=== PATIENT | female | born 1955 | race Caucasian/White ===

== ENCOUNTER 2017-08-07 11:03 | Day surgery (SDC) | payer MEDICARE ==
[~2017-08-07 11:03] MED LIST: Buffered Lidocaine 0.9% SYRIN* 5 ML/SYR SYRINGE INTRADERM ONE; Famotidine IV* 10 MG/ML 2 ML (20 mg) IV ONE; Famotidine IV* 10 MG/ML 2 ML (20 mg) ONE; Metoclopramide TAB* 10 MG ONE; Metoclopramide TAB* 10 MG PO ONE
[2017-08-07] MEDS ORDERED: fentaNYL* 50 MCG/ML 2 ML VIAL (100 MCG VIAL) ONE (11:48)
[2017-08-07] MEDS ORDERED: Lidocaine 2% PF * 5 ML VIAL ONE (11:48)
[2017-08-07] MEDS ORDERED: Propofol* 10 MG/ML 20 ML BTL IV PUSH ONE ×2 (11:48→13:11)
[2017-08-07] MEDS ORDERED: Ondansetron INJ* 2 MG/ML VIAL ONE (11:48)
[2017-08-07] MEDS ORDERED: Ketorolac INJ* 30 MG/ML 1 ML VIAL ONE (11:48)
[2017-08-07] MEDS ORDERED: Dexamethasone IV* 4 MG/ML 1 ML (4 MG) ONE (11:48)
[2017-08-07] MEDS ORDERED: KETAMINE HCL* 50 MG/ML 10 ML VIAL ONE (11:48)
[2017-08-07] MEDS ORDERED: Midazolam* 1 MG/ML 5 ML VIAL (5 MG) ONE (11:48)
[2017-08-07] MEDS ORDERED: Ondansetron INJ* 2 MG/ML VIAL IV PRN (12:05)
[2017-08-07] MEDS ORDERED: fentaNYL* 50 MCG/ML 2 ML VIAL (100 MCG VIAL) IV PRN (12:05)
[2017-08-07] MEDS ORDERED: Midazolam* 1 MG/ML 2 ML VIAL (2 MG) ONE (12:44)
[2017-08-07 14:17] VITALS: BP 152/72
--- NOTE | 2017-08-08 07:39 | PRO ---
CC: Dr. Cox; Dr. Sarah Massey GASTROENTEROLOGY PROCEDURE REPORT: DATE OF PROCEDURE: 08/07/17 PROCEDURE: Colonoscopy to terminal ileum. SURGEON: Sarah Massey D.O. ANESTHESIA: MAC. INDICATION: Personal history of tubular adenomatous polyps. HISTORY OF PRESENT ILLNESS: Evelina is a very pleasant 61-year-old female with a history of lymphoma and is here for a surveillance colonoscopy. The patient's last colonoscopy was performed in 2011 and revealed multiple tubular adenomas. She has no family history of colon cancer. FINDINGS: 1. Good colonoscopy preparation. 2. Normal appearing terminal ileum. 3. A 4 mm sessile polyp seen in the descending colon with polypectomy. 4. Two 4 mm sigmoid polyps with polypectomies. 5. Pavon diverticulosis consisting of medium and large mouthed diverticula throughout the colon. There were greater diverticula in the descending and sigmoid colon versus ascending colon. 6. Small nonbleeding internal hemorrhoids seen on retroflexion. PLAN: 1. Will follow-up biopsy results. 2. Patient will likely need a repeat Colonoscopy in 5 years due to polyps. 3. Please note, patient has emphysema and we have had significant difficulty with moderate sedation in the past. I recommend that any further endoscopic procedures be done under MAC anesthesia for airway safety. DESCRIPTION OF PROCEDURE: Colonoscopy was explained in detail to the patient. The risks, benefits, complications, alternatives, and possibilities of missed lesions were explained and understood. Complications included, but were not limited to, reaction to anesthesia, aspiration, increased risk of bleeding, infection, and perforation. All questions were answered. The patient demonstrated understanding of the conversation, informed consent was obtained. Next, the patient was brought to the endoscopy suite, placed in the left lateral recumbent position where blood pressure, cardiac and oxygen monitors were applied. The patient was found to be a fit candidate for MAC anesthesia. After adequate IV sedation was obtained, a digital rectal exam was performed, which revealed normal sphincter tone. No palpable masses were appreciated. Next, a standard Adult Olympus Colonoscope was inserted through the rectum, maneuvered all the way to the cecal base where the ileocecal valve and appendiceal orifice were identified and photographed. Next, the terminal ileum was intubated and was normal appearing. Subsequently, the colonoscope was withdrawn in the fashion that allowed adequate visualization of the bowel. The patient had normal mucosal and vascular pattern upon entry. Overall, the patient's colonoscopy prep was good. There were medium and large mouthed diverticula seen throughout the entire colon, mainly in the ascending, descending and sigmoid colon. There were more diverticula noted in the descending and sigmoid colon. Entry into the descending colon revealed a 4 mm sessile polyp that was removed via cold forceps. Further withdrawal into the sigmoid colon revealed two 4 mm sessile polyps. These were also removed via cold forceps. Reflexion was performed and revealed a small nonbleeding internal hemorrhoid. Air was then removed from the patient. Colonoscope was removed from the patient. The patient tolerated the procedure well. There were no immediate complications. After a period of observation, the patient was discharged home with a shuttle van driver in stable condition. Thank you, Dr. Cox, for allowing us to participate in the care of your patient. If you should have any further questions or concerns, please do not hesitate to contact us. [id number]/[id number] #: [id number]
--- NOTE | 2017-08-08 09:42 | PRO ---
CC: Dr. Archana Cox * GASTROENTEROLOGY OPERATIVE REPORT: DATE OF PROCEDURE: 08/07/17 SURGEON: Sarah Massey DO ANESTHESIA: MAC. OPERATIVE PROCEDURE: Esophagogastroduodenoscopy to fourth portion of the duodenum. INDICATION: Abnormal CT imaging with thickening of the duodenum and epigastric pain. FINDINGS: 1. Mild pangastritis with biopsies from the antrum and body to rule out H. pylori. 2. A 3-cm hiatal hernia from 35 cm to 38 cm from the incisors. 3. Irregular appearing gastroesophageal junction at 35 cm from the incisors with biopsies. 4. Normal and mid proximal esophagus. 5. Duodenitis of the bulb with biopsies. 6. Irregular appearing thickened mucosal fold in the bulb of the duodenum with multiple biopsies. PLAN: 1. We will follow up with biopsy results. 2. Avoid NSAIDs if possible. 3. Recommend starting PPI therapy daily. 4. The patient should follow up in our office in 2 weeks to review biopsy results and determine further plan of care. 5. Due to patient's history of emphysema she has been unable to tolerate moderate anesthesia in the past. I recommend that any further endoscopic procedures be performed under MAC anesthesia. DESCRIPTION OF PROCEDURE: Esophagogastroduodenoscopy was explained in detail to the patient. The risks, benefits, complications, alternatives, and possibilities of missed lesions were explained and understood. Complications included but were not limited to reaction to anesthesia, aspiration, increased risk of bleeding, perforation. All questions were answered. The patient demonstrated understanding of the conversation. Informed consent was obtained. Next, the patient was brought to the endoscopy suite, placed in the left lateral recumbent position, where blood pressure, cardiac, and oxygen monitors were applied. The patient was found to be a fit candidate for MAC anesthesia. After adequate IV sedation was obtained, a bite- block was placed. Next, a standard adult Olympus endoscope was inserted per os under direct visualization to the fourth portion of duodenum. The third and fourth portion of the duodenum were normal appearing. The bulb, first, and second portion revealed mild erythema consistent with duodenitis. Upon entry into the bulb of the duodenum, there was a duodenal fold that was irregular-appearing and thickened. Multiple cold forceps biopsies were obtained of this area. Further withdrawal of the endoscope into the gastric lumen revealed moderate inflammation consistent with pangastritis of the entire stomach. Cold forceps biopsies were obtained from the antrum and body to rule out H. pylori. On retroflexion, the patient had a very loose sling. Further withdrawal of the endoscope into the distal esophagus revealed an irregular appearing gastroesophageal junction. Cold forceps biopsies were obtained of this area as well. There was a 3-cm hiatal hernia that was noted from 38 cm to 35 cm from the incisors. The rest of the tubular esophagus was normal appearing. Air was then removed from the patient. Endoscope was removed from the patient. The patient tolerated the procedure well. There were no immediate complications. After a period of observation, the patient was discharged home with a paratransit driver in stable condition. Thank you, Dr. Cox, for allowing us to participate in the care of your patient. We will follow your patient closely and review by path results. Further recommendations will be provided upon review of all of these results. If you should have any further questions or concerns, please do not hesitate to contact us. [id number]/CPS #: [id number] DANG
== END 2017-08-07 15:30 | disposition home or self-care (01) ==
LOC: OR 11:03
PROVIDERS: ATTEND Internal Medicine Gastroenterology
DX: R93.5 Abnormal findings on diagnostic imaging of other abdominal regions, including retroperitoneum (principal); Z86.010 Personal history of colon polyps; R10.13 Epigastric pain; Z12.11 Encounter for screening for malignant neoplasm of colon; K57.30 Diverticulosis of large intestine without perforation or abscess without bleeding; K63.5 Polyp of colon; K62.1 Rectal polyp; K64.8 Other hemorrhoids; K29.60 Other gastritis without bleeding; K44.9 Diaphragmatic hernia without obstruction or gangrene; K29.80 Duodenitis without bleeding; J44.9 Chronic obstructive pulmonary disease, unspecified; F17.210 Nicotine dependence, cigarettes, uncomplicated; G47.30 Sleep apnea, unspecified; C85.90 Non-Hodgkin lymphoma, unspecified, unspecified site
CPT/HCPCS: 88305; A9270-GY; J1100; J1885; J2250; J2405; J2704; J3010

== ENCOUNTER 2018-08-13 13:14 | Emergency (ER) | payer MEDICARE ==
[2018-08-13 14:31] VITALS: BP 144/74
--- NOTE | 2018-08-13 14:35 | UC ---
General HPI - HPI Summary HPI Summary: Patient states that 3 weeks ago she developed some nasal congestion a week into that illness she noted bilateral ear pressure and now has cough with clear sputum and yellow nasal discharge those 2 things have developed over the past 2 days. Also, last evening she had a fever of 101.2 which she has been treating with ibuprofen. She admits to having some shortness of breath and wheezing as well. Her past medical history does include COPD. She denies any associated chest pain. She did have some diarrhea couple of days ago but again that is since resolved. - History of Current Complaint Stated Complaint: SORE THROAT,COUGH Time Seen by Provider: 08/13/18 14:19 Hx Obtained From: Patient Onset/Duration: Gradual Onset Associated Signs & Symptoms: Positive: Cough, Diarrhea, Fever, SOB, Wheezing. Negative: Chest Pain, Nausea, Vomiting - Allergy/Home Medications Allergies/Adverse Reactions: Allergies Allergy/AdvReac Type Severity Reaction Status Date / Time amoxicillin Allergy Nausea And Verified 05/12/18 10:18 Vomiting bacitracin Allergy Rash And Verified 05/12/18 10:19 Itching clavulanic acid Allergy Nausea And Verified 05/12/18 10:20 Vomiting neomycin Allergy Rash And Verified 05/12/18 10:20 Itching polymyxin B Allergy Rash And Verified 05/12/18 10:20 Itching pramoxine Allergy Rash And Verified 05/12/18 10:21 Itching rofecoxib [From Vioxx] Allergy Hives Verified 05/12/18 10:21 Tetanus Vaccines and Toxoid Allergy GI Upset Verified 05/12/18 10:18 Home Medications: Home Medications Glycopyrrolate/Formoterol Fum [Bevespi Aerosphere Inhaler] 10.7 gm IH Q6HR PRN 08/13/18 [History Confirmed 08/13/18] PMH/Surg Hx/FS Hx/Imm Hx - Additional Past Medical History Additional PMH: Chronic hip and back pain Respiratory History: COPD - Surgical History Surgical History: Yes Surgery Procedure, Year, and Place: lymph nodes left side neck 03/2016, open heart surg 1975, cholecystectomy 1972, tubal ligation, hysterectomy 2004, [facility]PP [id number] - Family History Known Family History: Positive: Hypertension - Social History Occupation: Disabled Alcohol Use: Rare Substance Use Type: None Smoking Status (MU): Heavy Every Day Tobacco Smoker Amount Used/How Often: smoking for 40 years - Immunization History Vaccination Up to Date: Yes Review of Systems Constitutional: Fever Skin: Negative Eyes: Negative ENT: Ear Ache, Sinus Congestion, Sinus Pain/Tenderness Respiratory: Shortness Of Breath, Cough Cardiovascular: Negative Gastrointestinal: Negative Genitourinary: Negative Motor: Negative Neurovascular: Negative Musculoskeletal: Other: - chronic hip/back pain Neurological: Negative Psychological: Negative Is Patient Immunocompromised?: No All Other Systems Reviewed And Are Negative: Yes Physical Exam Triage Information Reviewed: Yes Appearance: Well-Appearing Vital Signs Reviewed: Yes Eyes: Positive: Conjunctiva Clear ENT: Positive: Pharynx normal, Nasal congestion, TMs normal, Sinus tenderness Neck: Positive: Supple, Nontender, No Lymphadenopathy Respiratory: Positive: Lungs clear, No respiratory distress, Decreased breath sounds Cardiovascular: Positive: RRR, No Murmur Abdomen Description: Positive: Nontender, No Organomegaly, Soft Bowel Sounds: Positive: Present Musculoskeletal: Positive: ROM Intact, No Edema Neurological: Positive: Alert Psychological: Positive: Age Appropriate Behavior Skin Exam: Normal Diagnostics - Radiology No standard instances Radiology Interpretation Completed By: Radiologist - CXR=HYPERINFLATION, CONSISTENT WITH COPD. NO ACTIVE CARDIOPULMONARY DISEASE. Re-Evaluation - Re-Evaluation First Eval Re-Evaluation Time: 15:24 Change: Improved - much better aeration post neb, pt feeling her breathing is much better. no itching from the po prednisone here. Course/Dx - Course Course Of Treatment: non toxic, not hypoxic. no infiltrate on cxr. now has a fever and worsening illness thus will cover for bacterial infection with levaquin which will cover her lungs and sinuses. pt allergic to pcn's and doxycycline has a drug interaction that is significant.pt has taken levaquin in past and states that works well for her. we discussed the risk of tendinopathy, pt willing to take that risk. pt noted a hx of itching after a dose of prednisone in past but was never told not to take it again. she agrees to trial a dose of prednisone here. no concern for acs. - Differential Dx - Multi-Symptom Provider Diagnoses: sinusitis. exacerbation COPD Discharge - Sign-Out/Discharge Documenting (check all that apply): Patient Departure All imaging exams completed and their final reports reviewed: Yes - Discharge Plan Condition: Stable Disposition: HOME Prescriptions: Albuterol HFA INHALER* [Ventolin HFA Inhaler*] 2 puff INH Q6H #1 mdi Levofloxacin TAB* [Levaquin TAB*] 500 mg PO DAILY 7 Days #7 tab predniSONE TAB* [Deltasone 20 MG TAB*] 40 mg PO DAILY 3 Days #6 tab Patient Education Materials: Sinusitis (ED), COPD (Chronic Obstructive Pulmonary Disease) (ED) Referrals: Archana Cox MD [Primary Care Provider] - 5 Days - Billing Disposition and Condition Condition: STABLE Disposition: Home
[2018-08-13] MEDS ORDERED: Albuterol/Ipratropium NEB.SOL* Albuterol 2.5 MG/Ipratropium 0.5 MG 3 ML INH ONE (14:43)
[2018-08-13] MEDS ORDERED: predniSONE TAB* 20 MG PO ONE (14:44)
--- NOTE | 2018-08-13 14:58 | RAD ---
HISTORY: COUGH, FEVER COMPARISONS: December 17, 2016 VIEWS: 4: Frontal dual-energy and lateral views of the chest. FINDINGS: CARDIOMEDIASTINAL SILHOUETTE: The cardiomediastinal silhouette is normal. FILEMON: The filemon are normal. PLEURA: The costophrenic angles are sharp. No pleural abnormalities are noted. LUNG PARENCHYMA: There is hyperinflation with flattening of the diaphragm and expansion of the AP diameter of the chest. ABDOMEN: The upper abdomen is clear. There is no subphrenic gas. BONES AND SOFT TISSUES: The patient is status post median sternotomy. OTHER: None. IMPRESSION: HYPERINFLATION, CONSISTENT WITH COPD. NO ACTIVE CARDIOPULMONARY DISEASE.
== END 2018-08-13 15:35 | disposition home or self-care (01) ==
LOC: UCCORT 13:14
DX: J32.9 Chronic sinusitis, unspecified (principal); J44.1 Chronic obstructive pulmonary disease with (acute) exacerbation; M25.559 Pain in unspecified hip; M54.9 Dorsalgia, unspecified; F17.210 Nicotine dependence, cigarettes, uncomplicated; Z88.8 Allergy status to other drugs, medicaments and biological substances; Z88.1 Allergy status to other antibiotic agents
CPT/HCPCS: 71046; 99212; A9270-GY; G0463; J7512

== ENCOUNTER 2018-11-09 16:52 | Emergency (ER) | payer MEDICARE, OTHER ==
[2018-11-09 17:36] VITALS: BP 157/79
[2018-11-09] MEDS ORDERED: Ketorolac INJ* 60 MG/2 ML VIAL IM ONE (17:45)
--- NOTE | 2018-11-09 17:51 | UC ---
Shoulder Pain HPI - HPI Summary HPI Summary: Patient slept on her couch and woke up with a buring sensation down her shoulder to her elbow, feels like she pinched a nerve, chiropractor was not open today - History of Current Complaint Chief Complaint: UCUpperExtremity Stated Complaint: NECK AND SHOULDER PAIN Time Seen by Provider: 11/09/18 17:29 Hx Obtained From: Patient ?: No Onset/Duration: Sudden Onset, Lasting Hours Timing: Constant Severity Initially: Severe Severity Currently: Severe Location Of Pain: Is Discrete @ - right shoulder and arm Pain Intensity: 7 Character: Spasmodic, Burning Aggravating Factor(s): Movement - Allergies/Home Medications Allergies/Adverse Reactions: Allergies Allergy/AdvReac Type Severity Reaction Status Date / Time amoxicillin Allergy Nausea And Verified 11/09/18 17:37 Vomiting bacitracin Allergy Rash And Verified 11/09/18 17:37 Itching clavulanic acid Allergy Nausea And Verified 11/09/18 17:37 Vomiting neomycin Allergy Rash And Verified 11/09/18 17:37 Itching polymyxin B Allergy Rash And Verified 11/09/18 17:37 Itching pramoxine Allergy Rash And Verified 11/09/18 17:37 Itching rofecoxib [From Vioxx] Allergy Hives Verified 11/09/18 17:37 Tetanus Vaccines and Toxoid Allergy GI Upset Verified 11/09/18 17:37 PMH/Surg Hx/FS Hx/Imm Hx Previously Healthy: Yes - Surgical History Surgical History: Yes Surgery Procedure, Year, and Place: lymph nodes left side neck 03/2016, open heart surg 1975, cholecystectomy 1972, tubal ligation, hysterectomy 2004, [facility] [id number] - Family History Known Family History: Positive: Hypertension - Social History Alcohol Use: Rare Substance Use Type: None Smoking Status (MU): Heavy Every Day Tobacco Smoker Type: Cigarettes Amount Used/How Often: smoking for 40 years - Immunization History Vaccination Up to Date: Yes Review of Systems All Other Systems Reviewed And Are Negative: Yes Constitutional: Positive: Negative Skin: Positive: Negative Eyes: Positive: Negative ENT: Positive: Negative Respiratory: Positive: Negative Cardiovascular: Positive: Negative Gastrointestinal: Positive: Negative Genitourinary: Positive: Negative Motor: Positive: Negative Neurovascular: Positive: Negative Musculoskeletal: Positive: Arthralgia, Decreased ROM, Myalgia Neurological: Positive: Negative Psychological: Positive: Negative Is Patient Immunocompromised?: No Physical Exam Triage Information Reviewed: Yes Appearance: Well-Appearing, Well-Nourished, Pain Distress Vital Signs: Initial Vital Signs Temp 97.4 F 11/09/18 17:33 Pulse 70 11/09/18 17:33 Resp 18 11/09/18 17:33 BP 157/79 11/09/18 17:33 Pulse Ox 100 11/09/18 17:33 Vital Signs Reviewed: Yes Eye Exam: Normal ENT Exam: Normal Dental Exam: Normal Neck exam: Normal Neck: Positive: Supple, Nontender, No Lymphadenopathy Respiratory Exam: Normal Respiratory: Positive: Chest non-tender, Lungs clear, Normal breath sounds Cardiovascular Exam: Normal Cardiovascular: Positive: Pulses Normal Abdominal Exam: Normal Abdomen Description: Positive: Nontender, No Organomegaly, Soft Bowel Sounds: Positive: Present Musculoskeletal Exam: Normal Musculoskeletal: Positive: Strength Intact, ROM Intact - but pain ful to calvo her arm at her side, increaes the burning, No Edema Neurological Exam: Normal Neurological: Positive: Alert Psychological Exam: Normal Skin Exam: Normal Shoulder Course/Dx - Course Course Of Treatment: hx btained, exam performed ,meds reviewed, tordaol given and muscle relaxor prescribed - Differential Dx/Diagnosis Differential Diagnosis/HQI/PQRI: Sprain, Strain Provider Diagnosis: Cervical radiculopathy, Neck pain Discharge - Sign-Out/Discharge Documenting (check all that apply): Patient Departure All imaging exams completed and their final reports reviewed: No Studies - Discharge Plan Condition: Stable Disposition: HOME Prescriptions: Cyclobenzaprine TAB* [Flexeril 10 MG TAB*] 10 mg PO TID PRN #15 tab PRN Reason: Spasms Patient Education Materials: Cervical Radiculopathy (ED) Referrals: Archana Cox MD [Primary Care Provider] - Additional Instructions: 1. you were given a dose of toradol, do not take and aleve or ibuprofen until after 2 am. you may use tylenol or the flexeril as needed. 2. heat stretch and lay flat with arm supported for sleep 3. Follow up with your chiropractor at your earliest convenience - Billing Disposition and Condition Condition: STABLE Disposition: Home - Attestation Statements Provider Attestation: I was available for consult. This patient was seen by the [facility]. The patient was not presented to , seen by or examined by vt Crista Benoit MD
[2018-11-09] MEDS ORDERED: Cyclobenzaprine TAB* 10 MG PO ONE (17:52)
== END 2018-11-09 18:04 | disposition home or self-care (01) ==
LOC: UCCORT 16:52
DX: M54.12 Radiculopathy, cervical region (principal); Z88.0 Allergy status to penicillin; Z88.1 Allergy status to other antibiotic agents; Z88.8 Allergy status to other drugs, medicaments and biological substances; Z88.7 Allergy status to serum and vaccine; F17.210 Nicotine dependence, cigarettes, uncomplicated
CPT/HCPCS: 96372; 99212; A9270-GY; G0463; J1885

== ENCOUNTER 2019-11-03 12:49 | Emergency (ER) | payer MEDICARE, OTHER ==
[2019-11-03 13:44] VITALS: BP 128/72
[2019-11-03 14:10] LABS: Influenza A Molecular NEGATIVE (Negative); Influenza B Molecular NEGATIVE (Negative)
--- NOTE | 2019-11-03 15:06 | UC ---
FLU HPI - HPI Summary HPI Summary: Pt presents with c/o body aches, chills, subjective fever, X 2 days, and abdominal pain and multiple episodes of diarrhea that began today. Pt states she has not gotten her flu vaccine. Pt is concerned that she may have the flu. - History of Current Complaint Chief Complaint: UCGeneralIllness Stated Complaint: CONGESTION DIARRHEA CHILLS BODYACHES Time Seen by Provider: 11/03/19 13:47 Hx Obtained From: Patient ?: No Onset/Duration: Sudden Onset, Lasting Days, Still Present Severity Currently: Moderate Severity Initially: Moderate Pain Intensity: 4 Pain Scale Used: 0-10 Numeric Associated Signs & Symptoms: Positive: Fever, Myalgia, Diarrhea - Risk Factors Influenza Risk Factors: Negative - Allergy/Home Medications Allergies/Adverse Reactions: Allergies Allergy/AdvReac Type Severity Reaction Status Date / Time amoxicillin Allergy Nausea And Verified 11/03/19 13:32 Vomiting bacitracin Allergy Rash And Verified 11/03/19 13:32 Itching clavulanic acid Allergy Nausea And Verified 11/03/19 13:32 Vomiting neomycin Allergy Rash And Verified 11/03/19 13:32 Itching polymyxin B Allergy Rash And Verified 11/03/19 13:32 Itching pramoxine Allergy Rash And Verified 11/03/19 13:32 Itching rofecoxib [From Vioxx] Allergy Hives Verified 11/03/19 13:32 Tetanus Vaccines and Toxoid Allergy GI Upset Verified 11/03/19 13:32 PMH/Surg Hx/FS Hx/Imm Hx Previously Healthy: Yes - Surgical History Surgical History: Yes Surgery Procedure, Year, and Place: lymph nodes left side neck 03/2016, open heart surg 1975, cholecystectomy 1972, tubal ligation, hysterectomy 2004, UPP- sleep apnea surgery-T+A [id number] - Family History Known Family History: Positive: Hypertension - Social History Occupation: Disabled Lives: With Family Alcohol Use: Rare Substance Use Type: None Smoking Status (MU): Heavy Every Day Tobacco Smoker Type: Cigarettes Amount Used/How Often: 1/2 ppd Length of Time of Smoking/Using Tobacco: 40 years Have You Smoked in the Last Year: Yes Household Exposure Type: Cigarettes - Immunization History Vaccination Up to Date: Yes Review of Systems All Other Systems Reviewed And Are Negative: Yes Constitutional: Positive: Fever, Chills, Fatigue Skin: Positive: Negative Eyes: Positive: Negative ENT: Positive: Sinus Congestion Respiratory: Positive: Negative Cardiovascular: Positive: Negative Gastrointestinal: Positive: Diarrhea Genitourinary: Positive: Negative Motor: Positive: Negative Neurovascular: Positive: Negative Musculoskeletal: Positive: Myalgia Neurological: Positive: Negative Psychological: Positive: Negative Is Patient Immunocompromised?: No Physical Exam Triage Information Reviewed: Yes Appearance: Ill-Appearing Vital Signs: Initial Vital Signs Temp 97.4 F 11/03/19 13:35 Pulse 76 11/03/19 13:35 Resp 18 11/03/19 13:35 BP 128/72 11/03/19 13:35 Pulse Ox 97 11/03/19 13:35 Vital Signs Reviewed: Yes Eye Exam: Normal ENT: Positive: Nasal congestion Dental Exam: Normal Neck exam: Normal Respiratory: Positive: Normal breath sounds, No respiratory distress Cardiovascular Exam: Normal Musculoskeletal Exam: Normal Neurological Exam: Normal Psychological Exam: Normal Skin Exam: Normal Flu Course/Dx - Course Course Of Treatment: Pt states she has not gotten her flu vaccine. - Differential Dx/Diagnosis Differential Diagnosis/HQI/PQRI: Influenza, Upper Respiratory Infection Provider Diagnosis: Viral syndrome Discharge ED - Sign-Out/Discharge Documenting (check all that apply): Patient Departure All imaging exams completed and their final reports reviewed: No Studies - Discharge Plan Condition: Stable Disposition: HOME Patient Education Materials: Loperamide (By mouth), Decongestant/Expectorant ( By mouth), Viral Syndrome (ED) Referrals: [facility] [Outside] - If Needed Archana Cox MD [Primary Care Provider] - - Billing Disposition and Condition Condition: STABLE Disposition: Home
== END 2019-11-03 14:27 | disposition home or self-care (01) ==
LOC: UCCORT 12:49
DX: M79.10 Myalgia, unspecified site (principal); R68.83 Chills (without fever); R10.9 Unspecified abdominal pain; R19.7 Diarrhea, unspecified; F17.210 Nicotine dependence, cigarettes, uncomplicated; Z88.8 Allergy status to other drugs, medicaments and biological substances; R53.83 Other fatigue; R09.89 Other specified symptoms and signs involving the circulatory and respiratory systems; Z88.1 Allergy status to other antibiotic agents; Z88.0 Allergy status to penicillin; Z88.7 Allergy status to serum and vaccine
CPT/HCPCS: 99211; G0463

== ENCOUNTER 2023-06-17 13:59 | Observation (INO) ==
[2023-06-17] MEDS ORDERED: cefTRIAXone 2 gm/50 mL D5W 2 GM/50 ML BAG IV ONE (14:36)
[2023-06-17] MEDS ORDERED: Lidocaine 2% PF 5 ML VIAL ONE (15:05)
[2023-06-17] MEDS ORDERED: Propofol 10 MG/ML 20 ML BTL ONE (15:05)
[2023-06-17] MEDS ORDERED: fentaNYL 100 mcg/2 ml 50 MCG/ML VIAL ONE ×3 (15:06→18:34)
[2023-06-17] MEDS ORDERED: Iohexol 180 (CONTRAST) 10 ML SDV IV ONE (15:48)
[2023-06-17] MEDS ORDERED: Midazolam 2 mg/2 ml VIAL 1 mg/ml 2 ml VIAL (2 mg) ONE (16:26)
[2023-06-17] MEDS ORDERED: Ondansetron 4 mg VIAL 2 MG/ML 2 ml VIAL ONE (17:13)
[2023-06-17] MEDS ORDERED: Furosemide 20 mg/2 ml IV VIAL ONE ×2 (18:07→18:44)
[2023-06-17] MEDS ORDERED: Naloxone 0.4 mg VIAL 0.4 mg/ml 1 ml VIAL IV PRN ×2 (18:21→19:19)
[2023-06-17] MEDS: fentaNYL 100 mcg/2 ml 50 MCG/ML VIAL IV PRN ×4 (18:36→18:59)
[2023-06-17] MEDS ORDERED: Acetaminophen IV 1 GM/100ML 1,000 MG/100 ML BAG IV ONE ×2 (19:16→19:21)
[2023-06-17] MEDS ORDERED: HYDROmorphone 1 MG/1 ML SYRINGE ONE (19:21)
[2023-06-17] MEDS: HYDROmorphone 1 MG/1 ML SYRINGE IV PRN ×5 (19:23→20:59)
[2023-06-17] MEDS ORDERED: Albuterol HFA INHALER 8 gm MDI INH PRN (20:49)
[2023-06-17 20:56] LABS: Rapid COVID-19 Molecular Undetected (Undetected)
[2023-06-17] MEDS ORDERED: HYDROmorphone 1 MG/1 ML SYRINGE IV SLOW PU PRN (21:04)
[2023-06-17] MEDS ORDERED: HYDROcodone/ACETAMIN 5/325 mg TAB PO PRN (21:05)
[2023-06-17] MEDS ORDERED: Dextrose 50% Syringe 50 ml 25 GM/50 ML SYRINGE IV PUSH PRN (21:06)
[2023-06-18] MEDS ORDERED: oxyCODONE/Acetamin 5/325 mg TAB PO PRN (00:19)
[2023-06-18] MEDS ORDERED: LACTATED RINGERS 1000 ML BAG IV SCH (01:00)
[2023-06-18] MEDS ORDERED: Furosemide 20 mg/2 ml IV VIAL IV SLOW PU ONE (01:00)
[2023-06-18] MEDS ORDERED: GEMTESA 75 MG PO SCH (09:00)
[2023-06-18 10:02] VITALS: BP 107/67
== END 2023-06-18 13:30 | disposition home or self-care (01) ==
LOC: OR 13:59 → SSU 13:59
PROVIDERS: ADMIT Obstetrics & Gynecology Reproductive Endocrinology; ATTEND Internal Medicine

== ENCOUNTER 2024-10-22 10:28 | Inpatient (IN) ==
[2024-10-22] MEDS: Lactated Ringers 1000 ml BAG IV.FLUID IV ONE (12:58)
[2024-10-22 13:06] LABS: Hematocrit 30.6 % (35-45); Hemoglobin 10.9 g/dL (11.5-14.3); Mean Corpuscular Hgb Conc 35.5 g/dL (31-36); Mean Corpuscular Volume 92.9 fL (80-97); Mean Platelet Volume 7.6 fL (7.5-11.2); Platelet Count 97 10^3/uL (150-450); Red Blood Count 3.29 10^6/uL (3.63-4.92); Red Cell Distribution Width 15.2 % (12-17); White Blood Count 4.5 10^3/uL (3.8-11.8)
[2024-10-22 13:11] LABS: ALT 54 U/L (7-52); AST 26 U/L (13-39); Albumin 3.5 g/dL (3.2-5.2); Albumin/Globulin Ratio 1.7 (1-3); Alkaline Phosphatase 208 U/L (35-149); Anion Gap 6 mmol/L (2-16); Blood Urea Nitrogen 13 mg/dL (6-24); CO2 Carbon Dioxide 30 mmol/L (22-32); Calcium 8.9 mg/dL (8.6-10.3); Chloride 92 mmol/L (101-111); Creatinine, Serum 0.89 mg/dL (0.51-0.95); Globulin 2.1 g/dL (2-4); Glucose 118 mg/dL (70-100); Potassium 4.2 mmol/L (3.5-5.0); Sodium 128 mmol/L (135-145); Total Bilirubin 0.5 mg/dL (0.2-1.0); Total Protein 5.6 g/dL (6.4-8.9); eGFR CKD-EPI 70.6 (>60)
[2024-10-22 13:30] LABS: ABS Lymphocytes 0.7 10^3/uL (1.0-4.8); ABS Monocytes 1.1 10^3/uL (0.0-0.9); ABS Neutrophils 2.6 10^3/uL (1.5-7.6); ABS Nucleated RBC 0.01 10^3/ul; Eosinophil % 0.1 %; Lymphocyte % 16.5 %; Nucleated Red Blood Cells % 0.2 %/100WBC (0.0-0.8)
[2024-10-22] MEDS: Iodixanol 320 (CONTRAST) 100 ML SDV IV ONE (14:39)
[2024-10-22] MEDS: Morphine ORAL.SOLN 10 mg 2 mg/ml UDC 5 ml (10 mg) PO ONE (14:41)
[2024-10-22] MEDS: Morphine 15 mg TAB (NF) PO ONE (14:45)
[2024-10-22 15:44] LABS: GGTP 308 U/L (9-64.0)
[2024-10-22] MEDS ORDERED: Sulfur Hexaflouride MICROSPHR 25 MG VIAL IV PRN (17:08)
[2024-10-22] MEDS ORDERED: Dextrose 50% Syringe 50 ml 25 GM/50 ML SYRINGE IV PUSH PRN (18:09)
[2024-10-22] MEDS ORDERED: cefTRIAXone 1 gm/50 mL D5W 1 GM/50 ML BAG IV SCH (18:15)
[2024-10-22 18:55] LABS: Urine Appearance Clear; Urine Bilirubin Negative (Negative); Urine Blood Negative (Negative); Urine Color Yellow; Urine Glucose Negative (Negative); Urine Ketones Negative (Negative); Urine Nitrite Negative (Negative); Urine Protein Trace (Negative); Urine Specific Gravity 1.047 (1.002-1.030); Urine Urobilinogen Negative (Negative); Urine pH 6.5 (5.0-8.0)
[2024-10-22 19:18] LABS: % Iron Saturation 30 % (15-55); .Transferrin 164 mg/dL (203-362); Iron 69 ug/dL (50-212); Magnesium 1.5 mg/dL (1.9-2.7); Phosphorus 3.6 mg/dL (2.5-5.0); Total Iron Binding Capacity 230 mcg/dL (250-450); Unsaturated Iron Binding 161 ug/dL
[2024-10-22 19:44] LABS: Folate > 20.00 ng/mL (5.90-24.80)
[2024-10-22 19:45] LABS: Vitamin B12 > 1450 pg/mL (180-914)
[2024-10-22] MEDS: Morphine ER 15 mg TAB ** extended release PO SCH (22:24)
[2024-10-22] MEDS: cefTRIAXone 1 GM Q24H (ADVAN) IVPB SCH (23:05)
[2024-10-23] MEDS: Azithromycin 500 mg/250 ml NS 500 MG/250 ML BAG IVPB SCH (00:16)
[2024-10-23] MEDS: Polyethylene Glycol 3350 17 GM PACKET PO PRN (00:16)
[2024-10-23] MEDS: Magnesium Sulf 4 GM/100 ML IV 4,000 MG/100 ML BAG IVPB ONE (02:11)
[2024-10-23 07:57] LABS: Hematocrit 28.1 % (35-45); Mean Corpuscular Hemoglobin 33.4 pg (27-33); Mean Corpuscular Hgb Conc 35.5 g/dL (31-36); Mean Corpuscular Volume 94.2 fL (80-97); Mean Platelet Volume 7.5 fL (7.5-11.2); Platelet Count 117 10^3/uL (150-450); Red Blood Count 2.98 10^6/uL (3.63-4.92); Red Cell Distribution Width 15.3 % (12-17); White Blood Count 4.1 10^3/uL (3.8-11.8)
[2024-10-23 08:33] LABS: Albumin 3.2 g/dL (3.2-5.2); Albumin/Globulin Ratio 1.6 (1-3); Calcium 8.5 mg/dL (8.6-10.3); Creatinine, Serum 0.69 mg/dL (0.51-0.95); Magnesium 2.5 mg/dL (1.9-2.7); Potassium 4.3 mmol/L (3.5-5.0); Total Bilirubin 0.3 mg/dL (0.2-1.0); Total Protein 5.2 g/dL (6.4-8.9); eGFR CKD-EPI 94.5 (>60)
[2024-10-23 09:35] LABS: ABS Lymphocytes 0.8 10^3/uL (1.0-4.8); ABS Neutrophils 2.3 10^3/uL (1.5-7.6); ABS Nucleated RBC 0.01 10^3/ul; Anisocytosis 1+; Eosinophil % 0.2 %; Lymphocyte % 18.9 %; Nucleated Red Blood Cells % 0.2 %/100WBC (0.0-0.8); Polychromasia 1+
[2024-10-23] MEDS: Senna TAB 8.6 mg TAB PO SCH (20:21)
[2024-10-24 06:45] LABS: Hematocrit 28.4 % (35-45); Hemoglobin 10.1 g/dL (11.5-14.3); Mean Corpuscular Hemoglobin 33.4 pg (27-33); Mean Corpuscular Hgb Conc 35.6 g/dL (31-36); Mean Corpuscular Volume 93.9 fL (80-97); Mean Platelet Volume 7.2 fL (7.5-11.2); Platelet Count 189 10^3/uL (150-450); Red Blood Count 3.02 10^6/uL (3.63-4.92); Red Cell Distribution Width 15.5 % (12-17); White Blood Count 4.4 10^3/uL (3.8-11.8)
[2024-10-24 07:16] LABS: Albumin 3.1 g/dL (3.2-5.2); Albumin/Globulin Ratio 1.6 (1-3); Calcium 8.4 mg/dL (8.6-10.3); Creatinine, Serum 0.69 mg/dL (0.51-0.95); Potassium 4.4 mmol/L (3.5-5.0); Total Bilirubin 0.3 mg/dL (0.2-1.0); Total Protein 5.1 g/dL (6.4-8.9); eGFR CKD-EPI 94.5 (>60)
[2024-10-24] MEDS: Iodixanol 320 (CONTRAST) 100 ML SDV IV ONE (11:37)
[2024-10-24] MEDS: Ondansetron 4 mg VIAL 2 MG/ML 2 ml VIAL IV ONE (20:28)
[2024-10-25 06:40] LABS: Hematocrit 28.7 % (35-45); Hemoglobin 9.9 g/dL (11.5-14.3); Mean Corpuscular Hemoglobin 32.6 pg (27-33); Mean Corpuscular Hgb Conc 34.7 g/dL (31-36); Mean Corpuscular Volume 94.1 fL (80-97); Mean Platelet Volume 7.2 fL (7.5-11.2); Platelet Count 308 10^3/uL (150-450); Red Blood Count 3.05 10^6/uL (3.63-4.92); Red Cell Distribution Width 15.2 % (12-17); White Blood Count 4.5 10^3/uL (3.8-11.8)
[2024-10-25 06:55] LABS: Calcium 8.6 mg/dL (8.6-10.3); Creatinine, Serum 0.64 mg/dL (0.51-0.95); Magnesium 1.8 mg/dL (1.9-2.7); Phosphorus 3.8 mg/dL (2.5-5.0); Potassium 4.4 mmol/L (3.5-5.0); eGFR CKD-EPI 96.2 (>60)
[2024-10-25 08:31] LABS: ABS Lymphocytes 1.1 10^3/uL (1.0-4.8); ABS Monocytes 0.9 10^3/uL (0.0-0.9); ABS Neutrophils 2.5 10^3/uL (1.5-7.6); ABS Nucleated RBC 0.01 10^3/ul; Eosinophil % 0.1 %; Lymphocyte % 24.7 %; Nucleated Red Blood Cells % 0.2 %/100WBC (0.0-0.8)
[2024-10-25] MEDS: Magnesium Sulfate 2 gm BAG 2 GM/50 ML BAG IVPB ONE (09:22)
[2024-10-25 10:58] VITALS: BP 123/63
[2024-10-25] MEDS: Albuterol HFA INHALER 8 gm MDI INH PRN (12:06)
[2024-10-25] MEDS ORDERED: cefTRIAXone 1 gm/50 mL D5W 1 GM/50 ML BAG IV SCH (19:30)
== END 2024-10-25 13:50 | disposition home or self-care (01) | DRG 190 ==
LOC: ED 10:28 → EDHOLD 10:28 → MED 17:35
PROVIDERS: ADMIT Internal Medicine; ATTEND Internal Medicine

== ENCOUNTER 2024-11-08 15:10 | Inpatient (IN) ==
[2024-11-08 16:37] LABS: ABS Basophils 0.1 10^3/uL (0.0-0.1); ABS Lymphocytes 0.9 10^3/uL (1.0-4.8); ABS Monocytes 0.1 10^3/uL (0.0-0.9); ABS Neutrophils 5.2 10^3/uL (1.5-7.6); Eosinophil % 0.4 %; Hematocrit 32.2 % (35-45); Hemoglobin 11.1 g/dL (11.5-14.3); Mean Corpuscular Hgb Conc 34.4 g/dL (31-36); Mean Corpuscular Volume 92.8 fL (80-97); Mean Platelet Volume 7.3 fL (7.5-11.2); Platelet Count 645 10^3/uL (150-450); Red Blood Count 3.48 10^6/uL (3.63-4.92); White Blood Count 6.3 10^3/uL (3.8-11.8)
[2024-11-08] MEDS: HYDROmorphone 0.5 MG/0.5 ML SYRINGE IV ONE ×2 (17:10→22:31)
[2024-11-08] MEDS: Ondansetron 4 mg VIAL 2 MG/ML 2 ml VIAL IV ONE (17:10)
[2024-11-08] MEDS: Lactated Ringers 1000 ml BAG 1,000 ML IV ONE (17:10)
[2024-11-08 17:18] LABS: Albumin 3.4 g/dL (3.5-5.7); Albumin/Globulin Ratio 1.2 (1-3); C Reactive Protein 20.85 mg/L (<8.01); Calcium 8.8 mg/dL (8.6-10.3); Creatinine, Serum 0.55 mg/dL (0.51-0.95); Globulin 2.8 g/dL (2-4); Potassium 3.9 mmol/L (3.5-5.0); Total Protein 6.2 g/dL (6.4-8.9); eGFR CKD-EPI 99.8 (>60)
[2024-11-08] MEDS: Iodixanol 320 (CONTRAST) 100 ML SDV IV ONE (19:38)
[2024-11-08 19:44] LABS: Urine Appearance Clear; Urine Bilirubin Negative (Negative); Urine Blood Negative (Negative); Urine Color Yellow; Urine Glucose Negative (Negative); Urine Ketones Negative (Negative); Urine Nitrite Negative (Negative); Urine Protein Trace (Negative); Urine Specific Gravity 1.015 (1.002-1.030); Urine Urobilinogen Negative (Negative)
[2024-11-08] MEDS ORDERED: Ondansetron 4 mg VIAL 2 MG/ML 2 ml VIAL ONE (23:27)
[2024-11-09] MEDS: HYDROmorphone 0.5 MG/0.5 ML SYRINGE IV ONE (05:51)
[2024-11-09] MEDS: Ondansetron 4 mg VIAL 2 MG/ML 2 ml VIAL IV ONE ×2 (05:51→09:30)
[2024-11-09] MEDS: HYDROmorphone 1 MG/1 ML SYRINGE IV SLOW PU ONE (09:31)
[2024-11-09] MEDS: cefTRIAXone 2 gm/50 mL D5W 2 GM/50 ML BAG IV ONE (09:31)
[2024-11-09] MEDS ORDERED: Lorazepam PYXIS KEY PRN (09:45)
[2024-11-09] MEDS: LORazepam 2 mg VIAL 1 ml IV PUSH ONE (11:39)
[2024-11-09] MEDS: metroNIDAZOLE IV 500 MG/100ML 500 MG/100 ML BAG IVPB ONE (12:34)
[2024-11-09] MEDS ORDERED: Acetaminophen IV 1 GM/100ML 1,000 MG/100 ML BAG IV PRN (14:36)
[2024-11-09] MEDS ORDERED: Morphine 2 MG/ML SYRINGE IV PRN (14:38)
[2024-11-09] MEDS ORDERED: Naloxone 0.4 mg VIAL 0.4 mg/ml 1 ml VIAL IV PUSH PRN (16:07)
[2024-11-09] MEDS ORDERED: HYDROmorphone 1 MG/1 ML SYRINGE IV SLOW PU PRN (16:11)
[2024-11-09] MEDS: HYDROmorphone 1 MG/1 ML SYRINGE IV SLOW PU SCH (16:19)
[2024-11-09] MEDS: Lactated Ringers 1000 ml BAG 1,000 ML IV SCH (17:07)
[2024-11-09] MEDS: HYDROmorphone 1 MG/1 ML SYRINGE IV SLOW PU PRN (17:07)
[2024-11-09] MEDS: Morphine ER 15 mg TAB ** extended release PO SCH (17:14)
[2024-11-09] MEDS: Famotidine IV 10 MG/ML 2 ml VIAL (20 mg) IV SLOW PU ONE (17:48)
[2024-11-09] MEDS: Ciprofloxacin 400mg IVPREMIX 400 MG/200 ML BAG IVPB SCH (17:48)
[2024-11-09] MEDS: metroNIDAZOLE IV 500 MG/100ML 500 MG/100 ML BAG IVPB SCH (20:10)
[2024-11-10] MEDS: Dextrose 50% Syringe 50 ml 25 GM/50 ML SYRINGE IV PUSH PRN (05:32)
[2024-11-10 06:11] LABS: Hematocrit 27.1 % (35-45); Hemoglobin 9.5 g/dL (11.5-14.3); Mean Corpuscular Hemoglobin 32.3 pg (27-33); Mean Corpuscular Hgb Conc 34.9 g/dL (31-36); Mean Corpuscular Volume 92.6 fL (80-97); Mean Platelet Volume 7.2 fL (7.5-11.2); Platelet Count 359 10^3/uL (150-450); Red Blood Count 2.93 10^6/uL (3.63-4.92); Red Cell Distribution Width 15.3 % (12-17); White Blood Count 2.5 10^3/uL (3.8-11.8)
[2024-11-10 06:52] LABS: Anion Gap 8 mmol/L (2-16); Blood Urea Nitrogen 7 mg/dL (6-24); CO2 Carbon Dioxide 27 mmol/L (22-32); Calcium 8.1 mg/dL (8.6-10.3); Chloride 96 mmol/L (101-111); Creatinine, Serum 0.59 mg/dL (0.51-0.95); Glucose 229 mg/dL (70-100); Magnesium 1.5 mg/dL (1.9-2.7); Potassium 3.1 mmol/L (3.5-5.0); Sodium 131 mmol/L (135-145); eGFR CKD-EPI 98.1 (>60)
[2024-11-10] MEDS: Magnesium Sulfate 2 gm BAG 2 GM/50 ML BAG IVPB ONE (07:40)
[2024-11-10 08:14] LABS: ALT 49 U/L (7-52); AST 44 U/L (13-39); Direct Bilirubin 0.2 mg/dL (0.03-0.18); Indirect Bilirubin 0.3 mg/dL (0.3-1.0); Total Bilirubin 0.5 mg/dL (0.2-1.0)
[2024-11-10] MEDS: KCL 20 MEQ/100 ML IVPREMIX 20 MEQ/100 ML BAG IV SCH (09:07)
[2024-11-10] MEDS: Ondansetron 4 mg VIAL 2 MG/ML 2 ml VIAL IV PRN (14:52)
[2024-11-10 18:26] LABS: % Iron Saturation 32 % (15-55); .Transferrin 159 mg/dL (203-362); Iron 72 ug/dL (50-212); Total Iron Binding Capacity 223 mcg/dL (250-450); Unsaturated Iron Binding 151 ug/dL
[2024-11-10 19:04] LABS: Ferritin 1079.3 ng/mL (11-307)
[2024-11-10 19:08] LABS: Folate > 20.00 ng/mL (5.90-24.80)
[2024-11-10 19:09] LABS: Vitamin B12 1170 pg/mL (180-914)
[2024-11-11 05:52] LABS: Hematocrit 28.3 % (35-45); Hemoglobin 9.6 g/dL (11.5-14.3); Mean Corpuscular Hemoglobin 31.5 pg (27-33); Mean Corpuscular Volume 92.5 fL (80-97); Mean Platelet Volume 7.1 fL (7.5-11.2); Platelet Count 295 10^3/uL (150-450); Red Blood Count 3.06 10^6/uL (3.63-4.92); Red Cell Distribution Width 15.3 % (12-17); White Blood Count 3.5 10^3/uL (3.8-11.8)
[2024-11-11 06:32] LABS: Albumin 3.3 g/dL (3.5-5.7); Albumin/Globulin Ratio 1.4 (1-3); Calcium 8.9 mg/dL (8.6-10.3); Creatinine, Serum 0.6 mg/dL (0.51-0.95); Globulin 2.3 g/dL (2-4); Magnesium 1.8 mg/dL (1.9-2.7); Phosphorus 3.2 mg/dL (2.5-5.0); Potassium 3.7 mmol/L (3.5-5.0); Total Bilirubin 0.6 mg/dL (0.2-1.0); Total Protein 5.6 g/dL (6.4-8.9); eGFR CKD-EPI 97.7 (>60)
[2024-11-11] MEDS: Magnesium Sulfate IV 1GM/100ML 1 GM/100 ML BAG IV ONE (08:38)
[2024-11-11] MEDS: Potassium Chlor 10 meq TAB PO ONE (08:39)
[2024-11-11] MEDS ORDERED: Magnesium Hydroxide LIQ 30 ML UDC PO PRN (10:08)
[2024-11-11] MEDS: Senna TAB 8.6 mg TAB PO SCH (11:41)
[2024-11-11] MEDS ORDERED: Senna TAB 8.6 mg TAB PO SCH (21:00)
[2024-11-11] MEDS: Polyethylene Glycol 3350 17 GM PACKET PO SCH (23:54)
[2024-11-12 05:02] LABS: Urine Osmo 197 mOsm/kg (150-1150)
[2024-11-12 06:08] LABS: ABS Eosinophils 0.1 10^3/uL (0.0-0.5); ABS Lymphocytes 0.7 10^3/uL (1.0-4.8); ABS Monocytes 0.5 10^3/uL (0.0-0.9); Eosinophil % 1.7 %; Hematocrit 27.6 % (35-45); Hemoglobin 9.3 g/dL (11.5-14.3); Lymphocyte % 21.4 %; Mean Corpuscular Hemoglobin 31.6 pg (27-33); Mean Corpuscular Hgb Conc 33.8 g/dL (31-36); Mean Corpuscular Volume 93.4 fL (80-97); Mean Platelet Volume 7.3 fL (7.5-11.2); Nucleated Red Blood Cells % 0.1 %/100WBC (0.0-0.8); Platelet Count 232 10^3/uL (150-450); Red Blood Count 2.96 10^6/uL (3.63-4.92); Red Cell Distribution Width 15.6 % (12-17); White Blood Count 3.4 10^3/uL (3.8-11.8)
[2024-11-12 06:45] LABS: Albumin 3.3 g/dL (3.5-5.7); Albumin/Globulin Ratio 1.5 (1-3); Calcium 8.8 mg/dL (8.6-10.3); Creatinine, Serum 0.61 mg/dL (0.51-0.95); Globulin 2.2 g/dL (2-4); Magnesium 1.7 mg/dL (1.9-2.7); Potassium 4.2 mmol/L (3.5-5.0); Total Bilirubin 0.4 mg/dL (0.2-1.0); Total Protein 5.5 g/dL (6.4-8.9); eGFR CKD-EPI 97.3 (>60)
[2024-11-12] MEDS: Magnesium Sulfate 2 gm BAG 2 GM/50 ML BAG IVPB ONE (08:17)
[2024-11-12 13:03] LABS: Osmolality Serum 274 mOsm/kg (275-295)
[2024-11-12] MEDS: Morphine ER 30 mg TAB ** extended release PO SCH (16:39)
[2024-11-12] MEDS: Magnesium Hydroxide LIQ 30 ML UDC PO SCH (20:48)
[2024-11-13 05:53] LABS: Hematocrit 26.7 % (35-45); Hemoglobin 9.2 g/dL (11.5-14.3); Mean Corpuscular Hemoglobin 32.3 pg (27-33); Mean Corpuscular Hgb Conc 34.5 g/dL (31-36); Mean Corpuscular Volume 93.6 fL (80-97); Platelet Count 166 10^3/uL (150-450); Red Blood Count 2.85 10^6/uL (3.63-4.92); Red Cell Distribution Width 15.5 % (12-17); White Blood Count 3.3 10^3/uL (3.8-11.8)
[2024-11-13 06:57] LABS: Calcium 8.7 mg/dL (8.6-10.3); Creatinine, Serum 0.63 mg/dL (0.51-0.95); Magnesium 1.8 mg/dL (1.9-2.7); Potassium 4.3 mmol/L (3.5-5.0); eGFR CKD-EPI 96.6 (>60)
[2024-11-13] MEDS: Magnesium Sulfate 2 gm BAG 2 GM/50 ML BAG IVPB ONE (08:53)
[2024-11-14] MEDS: Magnesium Sulfate 2 gm BAG 2 GM/50 ML BAG IVPB ONE (08:49)
[2024-11-14] MEDS: Lactated Ringers 1000 ml BAG 1,000 ML IV SCH ×2 (15:23→15:52)
[2024-11-14 15:27] LABS: ABS Lymphocytes 0.9 10^3/uL (1.0-4.8); ABS Monocytes 0.7 10^3/uL (0.0-0.9); ABS Neutrophils 2.3 10^3/uL (1.5-7.6); Eosinophil % 1.2 %; Hematocrit 26.9 % (35-45); Mean Corpuscular Hemoglobin 31.6 pg (27-33); Mean Corpuscular Hgb Conc 33.7 g/dL (31-36); Mean Corpuscular Volume 93.8 fL (80-97); Mean Platelet Volume 7.3 fL (7.5-11.2); Platelet Count 113 10^3/uL (150-450); Red Blood Count 2.86 10^6/uL (3.63-4.92); Red Cell Distribution Width 15.9 % (12-17)
[2024-11-14 15:38] LABS: Albumin 3.2 g/dL (3.5-5.7); Albumin/Globulin Ratio 1.3 (1-3); Calcium 8.4 mg/dL (8.6-10.3); Creatinine, Serum 0.69 mg/dL (0.51-0.95); Globulin 2.4 g/dL (2-4); Potassium 4.5 mmol/L (3.5-5.0); Total Bilirubin 0.3 mg/dL (0.2-1.0); Total Protein 5.6 g/dL (6.4-8.9); eGFR CKD-EPI 94.5 (>60)
[2024-11-15 05:49] LABS: ABS Lymphocytes 0.9 10^3/uL (1.0-4.8); ABS Monocytes 0.6 10^3/uL (0.0-0.9); ABS Neutrophils 1.8 10^3/uL (1.5-7.6); Eosinophil % 1.1 %; Hematocrit 26.5 % (35-45); Hemoglobin 9.2 g/dL (11.5-14.3); Lymphocyte % 26.9 %; Mean Corpuscular Hemoglobin 32.6 pg (27-33); Mean Corpuscular Hgb Conc 34.6 g/dL (31-36); Mean Corpuscular Volume 94.3 fL (80-97); Mean Platelet Volume 7.6 fL (7.5-11.2); Platelet Count 100 10^3/uL (150-450); Red Blood Count 2.81 10^6/uL (3.63-4.92); Red Cell Distribution Width 15.7 % (12-17); White Blood Count 3.4 10^3/uL (3.8-11.8)
[2024-11-15 06:36] LABS: Calcium 8.1 mg/dL (8.6-10.3); Creatinine, Serum 0.6 mg/dL (0.51-0.95); Magnesium 1.8 mg/dL (1.9-2.7); Potassium 4.5 mmol/L (3.5-5.0); eGFR CKD-EPI 97.7 (>60)
[2024-11-15] MEDS ORDERED: Magnesium Hydroxide LIQ 30 ML UDC PO PRN (08:15)
[2024-11-15] MEDS: Magnesium Sulfate 2 gm BAG 2 GM/50 ML BAG IVPB ONE (09:25)
[2024-11-15] MEDS ORDERED: Polyethylene Glycol 3350 17 GM PACKET PO PRN (09:29)
[2024-11-15] MEDS ORDERED: Senna TAB 8.6 mg TAB PO PRN (09:29)
[2024-11-15] MEDS: Morphine ER 15 mg TAB ** extended release PO SCH (17:06)
[2024-11-16 06:16] LABS: Hematocrit 27.6 % (35-45); Hemoglobin 9.6 g/dL (11.5-14.3); Mean Corpuscular Hemoglobin 33.1 pg (27-33); Mean Corpuscular Hgb Conc 34.9 g/dL (31-36); Mean Corpuscular Volume 94.9 fL (80-97); Red Blood Count 2.91 10^6/uL (3.63-4.92); Red Cell Distribution Width 16.6 % (12-17); White Blood Count 3.7 10^3/uL (3.8-11.8)
[2024-11-16 06:29] LABS: Albumin/Globulin Ratio 1.2 (1-3); Calcium 8.3 mg/dL (8.6-10.3); Creatinine, Serum 0.66 mg/dL (0.51-0.95); Globulin 2.6 g/dL (2-4); Magnesium 1.7 mg/dL (1.9-2.7); Potassium 4.5 mmol/L (3.5-5.0); Total Bilirubin 0.4 mg/dL (0.2-1.0); Total Protein 5.6 g/dL (6.4-8.9); eGFR CKD-EPI 95.5 (>60)
[2024-11-16 06:56] LABS: ABS Monocytes 0.6 10^3/uL (0.0-0.9); ABS Neutrophils 1.9 10^3/uL (1.5-7.6); Eosinophil % 1.3 %; Lymphocyte % 28.6 %; Mean Platelet Volume 7.7 fL (7.5-11.2); Nucleated Red Blood Cells % 0.1 %/100WBC (0.0-0.8); Platelet Count 86 10^3/uL (150-450)
[2024-11-16] MEDS: Magnesium Sulfate 2 gm BAG 2 GM/50 ML BAG IVPB ONE (09:07)
[2024-11-16] MEDS: Morphine ER 30 mg TAB ** extended release PO SCH (11:46)
[2024-11-16] MEDS: Psyllium PAK PO SCH (14:49)
[2024-11-17 06:46] LABS: ABS Eosinophils 0.1 10^3/uL (0.0-0.5); ABS Lymphocytes 1.2 10^3/uL (1.0-4.8); ABS Monocytes 0.6 10^3/uL (0.0-0.9); ABS Neutrophils 1.6 10^3/uL (1.5-7.6); ABS Nucleated RBC 0.01 10^3/ul; Eosinophil % 1.7 %; Hematocrit 27.8 % (35-45); Hemoglobin 9.6 g/dL (11.5-14.3); Mean Corpuscular Hemoglobin 32.8 pg (27-33); Mean Corpuscular Hgb Conc 34.4 g/dL (31-36); Mean Corpuscular Volume 95.3 fL (80-97); Mean Platelet Volume 7.8 fL (7.5-11.2); Nucleated Red Blood Cells % 0.4 %/100WBC (0.0-0.8); Platelet Count 81 10^3/uL (150-450); Red Blood Count 2.92 10^6/uL (3.63-4.92); Red Cell Distribution Width 17.5 % (12-17); White Blood Count 3.5 10^3/uL (3.8-11.8)
[2024-11-17 09:04] LABS: Albumin 3.1 g/dL (3.5-5.7); Albumin/Globulin Ratio 1.3 (1-3); Calcium 8.2 mg/dL (8.6-10.3); Creatinine, Serum 0.56 mg/dL (0.51-0.95); Globulin 2.3 g/dL (2-4); Magnesium 1.8 mg/dL (1.9-2.7); Phosphorus 4.1 mg/dL (2.5-5.0); Potassium 4.6 mmol/L (3.5-5.0); Total Bilirubin 0.3 mg/dL (0.2-1.0); Total Protein 5.4 g/dL (6.4-8.9); eGFR CKD-EPI 99.3 (>60)
[2024-11-17] MEDS: Magnesium Sulfate 2 gm BAG 2 GM/50 ML BAG IVPB ONE (14:30)
[2024-11-18 05:53] LABS: ABS Eosinophils 0.1 10^3/uL (0.0-0.5); ABS Lymphocytes 1.2 10^3/uL (1.0-4.8); ABS Monocytes 0.5 10^3/uL (0.0-0.9); ABS Neutrophils 1.8 10^3/uL (1.5-7.6); Eosinophil % 2.1 %; Hematocrit 29.3 % (35-45); Lymphocyte % 33.7 %; Mean Corpuscular Hemoglobin 32.7 pg (27-33); Mean Corpuscular Hgb Conc 34.2 g/dL (31-36); Mean Corpuscular Volume 95.6 fL (80-97); Mean Platelet Volume 8.2 fL (7.5-11.2); Nucleated Red Blood Cells % 0.1 %/100WBC (0.0-0.8); Platelet Count 110 10^3/uL (150-450); Red Blood Count 3.07 10^6/uL (3.63-4.92); Red Cell Distribution Width 17.3 % (12-17); White Blood Count 3.6 10^3/uL (3.8-11.8)
[2024-11-18 06:21] LABS: Albumin 3.2 g/dL (3.5-5.7); Albumin/Globulin Ratio 1.4 (1-3); Calcium 8.2 mg/dL (8.6-10.3); Creatinine, Serum 0.67 mg/dL (0.51-0.95); Globulin 2.3 g/dL (2-4); Magnesium 1.9 mg/dL (1.9-2.7); Potassium 4.7 mmol/L (3.5-5.0); Total Bilirubin 0.3 mg/dL (0.2-1.0); Total Protein 5.5 g/dL (6.4-8.9); eGFR CKD-EPI 95.1 (>60)
[2024-11-18 09:40] VITALS: BP 121/68
== END 2024-11-18 13:20 | disposition home or self-care (01) | DRG 391 ==
LOC: ED 15:10 → EDHOLD 15:10 → MED 11-09 16:08 → SUATTDRO 11-11 12:00 → MED 11-15 23:14
PROVIDERS: ADMIT Internal Medicine; ATTEND Student in an Organized Health Care Education/Training Program